=== PATIENT | female | born 1930 | race Caucasian/White ===

== ENCOUNTER 2016-09-19 21:41 | Emergency (ER) | payer MEDICARE ==
[~2016-09-19] VITALS: Ht 167.6 cm; Wt 61.0 kg
[~2016-09-19 21:41] MED LIST: ACTOS30 MG PO; AMARYL1 MG PO; AMLODIPINE5 MG PO; APRESOLINE25 MG/TAB PO; ATORVASTATIN CA10 MG PO; BABY ASPIRIN81 MG PO; BAYER ASPIRIN E81 MG PO; BL ADULT ASA81 MG OR; BRILINTA90 MG PO; CALCIUM + D600 MG PO; CARAFATE1 GM PO; CEPHALEXIN250 MG PO; CHONDROITIN OR; DAILY MULT1 PO; DIGOXIN0.125 MG PO; EVISTA60 MG PO; FLONASE0.05 % IN; FLUTICASONE50 MCG; GLIMEPIRIDE2 MG PO; GLUCOSAMINE CHO1 CAP PO; GLUCOSAMINE/CHO1 TAB PO; GLUCOSAMINE500 M3 OR; GRANULEX EX; HUMALOG PEN100 MG/M1 SC; HUMALOG100 UNIT/M SC; JANUVIA100 MG PO; KEFLEX500 MG PO; LANOXIN125 MCG PO; LASIX20 MG PO; LEVEMIR FL100 UNIT/M SC; LEVEMIR FLEXPEN SC; LOPID600 MG PO; LORTAB5 PO; LOSARTAN POTASS50 MG PO; LYRICA25 MG PO; MEGACE ES PO; METO50TA52 PO; METOPROLOL50 M1 PO; MIRALAX3350 N1 PO; MIRALAX3350 NF PO; NITROSTAT0.4 MG SL; NOVOLOG FLEXPEN SC; OSTEO BI-FLE OR; PANTOPRAZOLE SO40 MG PO; PIOGLITAZONE HC15 MG PO; PRANDIN0.5 MG PO; PROTONIX40 M2 PO; TRAMADOL HCL50 MG PO; ULTRAM50 M1 PO; WELCHOL625 MG PO; ZITHROMAX250 MG PO; ZOSTAVAX IM; [UNRECOGNIZED DRUG - OTHER] EX
[2016-09-19] MEDS ORDERED: BENADRYL 50MG C50 MG PO (23:32)
[2016-09-19] MEDS ORDERED: DOXYCYC MONO100 M2 PO (23:32)
[2016-09-19 23:45] VITALS: BP 152/85
== END 2016-09-19 23:47 | disposition home or self-care (01) ==
LOC: ED 21:41
DX: T78.40XA Allergy, unspecified, initial encounter (principal)

== ENCOUNTER 2016-10-09 21:57 | Emergency (ER) | payer MEDICARE ==
[~2016-10-09] VITALS: Ht 167.6 cm; Wt 66.1 kg
[~2016-10-09 21:57] MED LIST changes: +BENADRYL 50MG C50 MG PO; +DOXYCYC MONO100 M2 PO
[2016-10-09] MEDS ORDERED: CLONIDINE0.1 MG PO (22:14)
[2016-10-09] MEDS ORDERED: LANTUS100 MG/ML SC ×2 (22:18→22:20)
[2016-10-09 23:14] LABS: HEMATOCRIT 27.8 % (37.0-47.0); HEMOGLOBIN 9.2 g/dl (12.0-16.0); IMMATURE GRANULOCYTES 0.6 % (0.0-1.0); MEAN CELL VOLUME 95.9 fL CALC (80.0-100.0); MEAN CORPUSCULAR HGB 31.7 pG CALC (26.0-32.0); MEAN CORPUSCULAR HGB CONC 33.1 g/L CALC (32.0-36.0); NEUT# 5.92 thou/uL (2.00-7.15); RED BLOOD COUNT 2.9 mill/uL (4.20-5.60); RED CELL DISTRI WIDTH 14.2 % (11.5-15.5)
[2016-10-09 23:30] LABS: ALBUMIN 3.9 g/dL (3.2-5.0); BILIRUBIN, TOTAL 0.3 mg/dL (0.0-1.4); CALCIUM 9.2 mg/dL (8.4-10.2); CREATININE 1.4 mg/dL (0.5-1.0); POTASSIUM 4.4 mmol/l (3.5-5.1); TOTAL PROTEIN 6.6 g/dL (6.3-8.2)
[2016-10-09 23:38] LABS: DIGOXIN 1.2 ng/mL (0.8-2.0)
[2016-10-10 00:11] LABS: URINE BILIRUBIN - DIPSTICK NEGATIVE (NEGATIVE); URINE BLOOD DIPSTICK NEGATIVE (NEGATIVE); URINE CLARITY CLEAR; URINE COLOR YELLOW; URINE GLUCOSE - DIPSTICK NEGATIVE (NEGATIVE); URINE KETONE NEGATIVE (NEGATIVE); URINE LEUK ESTERASE SMALL (NEGATIVE); URINE NITRITE - DIPSTICK NEGATIVE (Negative); URINE PH 6.5 (4.5-8.0); URINE PROTEIN - DIPSTICK NEGATIVE (NEG-TRACE); URINE SPECIFIC GRAVITY <=1.005; URINE UROBILINOGEN - DIPSTICK 0.2 E.U./dL (0.2)
[2016-10-10 00:24] LABS: URINE RBC 0-2 RBC/hpf (0-5)
[2016-10-10 01:18] VITALS: BP 178/77
== END 2016-10-10 01:18 | disposition home or self-care (01) ==
LOC: ED 21:57
PROVIDERS: Emergency Medicine
DX: I10 Essential (primary) hypertension (principal); R06.02 Shortness of breath; R94.31 Abnormal electrocardiogram [ECG] [EKG]; I48.91 Unspecified atrial fibrillation

== ENCOUNTER 2017-10-07 18:37 | Emergency (ER) | payer MEDICARE ==
[~2017-10-07] VITALS: Ht 167.6 cm; Wt 63.6 kg
[~2017-10-07 18:37] MED LIST changes: +CLONIDINE0.1 MG PO; +COREG6.25 MG PO; +ISOSORB MONO30 MG PO; +LANTUS SOL100 UNIT/M SC; +LANTUS100 MG/ML SC; +TOPROL XL25 MG PO
[2017-10-07 19:37] LABS: HEMATOCRIT 33.4 % (37.0-47.0); HEMOGLOBIN 10.8 g/dl (12.0-16.0); IMMATURE GRANULOCYTES 0.6 % (0.0-1.0); MEAN CORPUSCULAR HGB CONC 32.3 g/L CALC (32.0-36.0); NEUT# 6.37 thou/uL (2.00-7.15); RED BLOOD COUNT 3.48 mill/uL (4.20-5.60); RED CELL DISTRI WIDTH 14.7 % (11.5-15.5)
[2017-10-07 19:56] LABS: PROTHROMBIN TIME 11.1 SECONDS (9.0-12.5)
[2017-10-07 19:58] LABS: ALBUMIN 3.7 g/dL (3.2-5.0); BILIRUBIN, TOTAL 0.5 mg/dL (0.0-1.4); CREATININE 1.8 mg/dL (0.5-1.0); POTASSIUM 4.1 mmol/l (3.5-5.1); TOTAL PROTEIN 6.7 g/dL (6.3-8.2)
[2017-10-07] MEDS ORDERED: ZYRTEC10 M3 PO (21:29)
[2017-10-07] MEDS ORDERED: BL MAGNESIUM250 MG PO (21:29)
[2017-10-07 21:55] VITALS: BP 135/87
== END 2017-10-07 21:55 ==
LOC: ED 18:37
PROVIDERS: Emergency Medicine
DX: I11.0 Hypertensive heart disease with heart failure (principal); I50.9 Heart failure, unspecified; R74.8 Abnormal levels of other serum enzymes; I48.91 Unspecified atrial fibrillation; I25.119 Atherosclerotic heart disease of native coronary artery with unspecified angina pectoris; M19.90 Unspecified osteoarthritis, unspecified site; E11.40 Type 2 diabetes mellitus with diabetic neuropathy, unspecified; E78.5 Hyperlipidemia, unspecified; Z95.5 Presence of coronary angioplasty implant and graft; Z95.1 Presence of aortocoronary bypass graft; R06.00 Dyspnea, unspecified

== ENCOUNTER 2017-12-30 07:26 | Emergency (ER) | payer MEDICARE ==
[~2017-12-30] VITALS: Ht 167.6 cm; Wt 90.0 kg
[~2017-12-30 07:26] MED LIST changes: +BL MAGNESIUM250 MG PO; +ZYRTEC10 M3 PO
[2017-12-30 08:30] VITALS: BP 165/92
== END 2017-12-30 08:37 | disposition home or self-care (01) ==
LOC: ED 07:26
DX: S80.01XA Contusion of right knee, initial encounter (principal); M25.561 Pain in right knee; W01.0XXA Fall on same level from slipping, tripping and stumbling without subsequent striking against object, initial encounter; Y93.01 Activity, walking, marching and hiking; Y92.003 Bedroom of unspecified non-institutional (private) residence as the place of occurrence of the external cause

== ENCOUNTER 2018-01-29 19:28 | Emergency (ER) | payer MEDICARE ==
[~2018-01-29] VITALS: Ht 167.6 cm; Wt 65.9 kg
[2018-01-29 21:24] VITALS: BP 123/62
== END 2018-01-29 21:42 | disposition home or self-care (01) ==
LOC: ED 19:28
DX: S20.212A Contusion of left front wall of thorax, initial encounter (principal); S00.83XA Contusion of other part of head, initial encounter; S51.812A Laceration without foreign body of left forearm, initial encounter; W01.198A Fall on same level from slipping, tripping and stumbling with subsequent striking against other object, initial encounter; Y93.E2 Activity, laundry; Y92.003 Bedroom of unspecified non-institutional (private) residence as the place of occurrence of the external cause

== ENCOUNTER 2018-05-31 12:05 | Observation (INO) | payer MEDICARE ==
[~2018-05-31] VITALS: Ht 167.6 cm; Wt 62.7 kg
[2018-05-31] VITALS (9 sets, daily range): BP systolic 120–164; BP diastolic 75–91
[~2018-05-31 12:05] MED LIST changes: +B-12500 MC2 PO; +BUMETANIDE2 MG PO; +COREG25 MG PO; +TYLENOL 500MG TAB PO
[2018-05-31 12:46] LABS: HEMATOCRIT 32.5 % (37.0-47.0); HEMOGLOBIN 10.2 g/dl (12.0-16.0); IMMATURE GRANULOCYTES 0.2 % (0.0-5.0); MEAN CELL VOLUME 98.5 fL CALC (80.0-100.0); MEAN CORPUSCULAR HGB 30.9 pG CALC (26.0-32.0); MEAN CORPUSCULAR HGB CONC 31.4 g/L CALC (32.0-36.0); NEUT# 3.52 thou/uL (2.00-7.15); RED BLOOD COUNT 3.3 mill/uL (4.20-5.60); RED CELL DISTRI WIDTH 17.1 % (11.5-15.5)
[2018-05-31 13:10] LABS: ALBUMIN 3.6 g/dL (3.2-5.0); ALKALINE PHOSPHATASE 57 u/l (38-126); ANION GAP 13 (6-22 (CALC)); BILIRUBIN, TOTAL 0.6 mg/dL (0.0-1.4); BUN 32 mg/dL (8-23); BUN/CREATININE RATIO 19 (12-20 (CALC)); CARBON DIOXIDE 25 mmol/l (22-30); CHLORIDE 102 mmol/l (95-108); CREATININE 1.7 mg/dL (0.5-1.0); GFR 28 ML/MIN (>=60 (CALC)); GFR FOR AFR.AMER. 34 ML/MIN (>=60 (CALC)); POTASSIUM 4.6 mmol/l (3.5-5.1); SGOT/AST 35 u/l (9-36); SODIUM 136 mmol/l (137-146); TOTAL PROTEIN 6.3 g/dL (6.3-8.2)
[2018-05-31 13:20] LABS: MYOGLOBIN 86 ng/mL (0 - 62)
[2018-05-31 14:16] LABS: URINE BILIRUBIN - DIPSTICK NEGATIVE (NEGATIVE); URINE BLOOD DIPSTICK NEGATIVE (NEGATIVE); URINE COLOR YELLOW; URINE GLUCOSE - DIPSTICK NEGATIVE (NEGATIVE); URINE KETONE NEGATIVE (NEGATIVE); URINE NITRITE - DIPSTICK NEGATIVE (Negative); URINE PROTEIN - DIPSTICK NEGATIVE (NEG-TRACE); URINE UROBILINOGEN - DIPSTICK 0.2 E.U./dL (0.2)
[2018-05-31 14:17] LABS: URINE CLARITY CLEAR; URINE LEUK ESTERASE SMALL (NEGATIVE)
[2018-05-31 14:25] LABS: URINE SQUAMOUS EPITHELIAL CELL FEW EPI/hpf (0-FEW)
[2018-06-01] VITALS (23 sets, daily range): BP systolic 102–162; BP diastolic 60–95
[2018-06-01 05:43] LABS: HEMATOCRIT 35.4 % (37.0-47.0); IMMATURE GRANULOCYTES 0.2 % (0.0-5.0); MEAN CELL VOLUME 97.5 fL CALC (80.0-100.0); MEAN CORPUSCULAR HGB 30.3 pG CALC (26.0-32.0); MEAN CORPUSCULAR HGB CONC 31.1 g/L CALC (32.0-36.0); NEUT# 3.41 thou/uL (2.00-7.15); RED BLOOD COUNT 3.63 mill/uL (4.20-5.60); RED CELL DISTRI WIDTH 17.2 % (11.5-15.5)
[2018-06-01 06:13] LABS: ALBUMIN 3.7 g/dL (3.2-5.0); BILIRUBIN, TOTAL 0.8 mg/dL (0.0-1.4); CREATININE 1.5 mg/dL (0.5-1.0); MAGNESIUM 1.7 mg/dL (1.6-2.3); TOTAL PROTEIN 6.4 g/dL (6.3-8.2)
[2018-06-02] VITALS (18 sets, daily range): BP systolic 86–159; BP diastolic 46–83
[2018-06-02 06:10] LABS: HEMATOCRIT 38.7 % (37.0-47.0); HEMOGLOBIN 12.2 g/dl (12.0-16.0); IMMATURE GRANULOCYTES 0.4 % (0.0-5.0); MEAN CORPUSCULAR HGB 30.3 pG CALC (26.0-32.0); MEAN CORPUSCULAR HGB CONC 31.5 g/L CALC (32.0-36.0); NEUT# 5.31 thou/uL (2.00-7.15); RED BLOOD COUNT 4.03 mill/uL (4.20-5.60); RED CELL DISTRI WIDTH 17.1 % (11.5-15.5)
[2018-06-02 06:50] LABS: ALBUMIN 3.9 g/dL (3.2-5.0); BILIRUBIN, TOTAL 1.3 mg/dL (0.0-1.4); CREATININE 1.6 mg/dL (0.5-1.0); POTASSIUM 3.7 mmol/l (3.5-5.1); TOTAL PROTEIN 6.6 g/dL (6.3-8.2)
[2018-06-02 07:30] LABS: MAGNESIUM 1.3 mg/dL (1.6-2.3)
[2018-06-03 04:00] VITALS: BP 124/74
[2018-06-03 08:05] VITALS: BP 143/73
[2018-06-03 09:29] VITALS: BP 143/73
[2018-06-03] MEDS ORDERED: BUMEX1 M1 PO (11:11)
== END 2018-06-03 12:45 | disposition home or self-care (01) ==
LOC: ED 12:05 → ED-I 14:51 → ED 15:04 → MS2 15:05 → ICU 15:05
PROVIDERS: Emergency Medicine; ADMIT Internal Medicine Nephrology; ATTEND Internal Medicine Nephrology
PROC: 0T9B70Z Drainage of Bladder with Drainage Device, Via Natural or Artificial Opening (ICD-10-PCS; principal; 2018-05-31)
DX: I13.0 Hypertensive heart and chronic kidney disease with heart failure and stage 1 through stage 4 chronic kidney disease, or unspecified chronic kidney disease (principal); I50.23 Acute on chronic systolic (congestive) heart failure; E11.22 Type 2 diabetes mellitus with diabetic chronic kidney disease; N18.3 Chronic kidney disease, stage 3 (moderate); E11.40 Type 2 diabetes mellitus with diabetic neuropathy, unspecified; E11.319 Type 2 diabetes mellitus with unspecified diabetic retinopathy without macular edema; I25.10 Atherosclerotic heart disease of native coronary artery without angina pectoris; I08.1 Rheumatic disorders of both mitral and tricuspid valves; I48.2 Chronic atrial fibrillation; E78.5 Hyperlipidemia, unspecified; Z95.5 Presence of coronary angioplasty implant and graft; Z95.1 Presence of aortocoronary bypass graft; Z79.4 Long term (current) use of insulin